=== PATIENT | male | born 1965 | race Two or more races ===

== ENCOUNTER 2019-07-11 10:52 | Emergency (ER) | payer OTHER ==
[~2019-07-11] VITALS: Ht 188 cm; Wt 81.6 kg
[2019-07-11] MEDS ORDERED: SODIUM CHLORIDE 0.9% 1,000 ML IVB ONE (10:55)
[2019-07-11 12:27] LABS: Basophils # (auto) 0.1 uL; Basophils % (auto) 0.5 % (0.0-2.0); Eosinophils # (auto) 0 uL; Eosinophils % (auto) 0.1 % (0.0-7.0)
[2019-07-11 12:29] LABS: Hematocrit 48.4 % (41.0-53.0); Hemoglobin 15.4 g/dL (13.5-17.5); Lymphocytes # (auto) 2.1 uL; Lymphocytes % (auto) 9.9 % (10.0-50.0); Mean Corpuscular Hemoglobin 27.7 pg (28.0-32.0); Mean Corpuscular Hgb Conc. 31.9 g/dL (32.0-36.0); Mean Corpuscular Volume 86.9 fL (80.0-100.0); Monocytes % (auto) 4.8 % (0.0-12.0); Neutrophils # (auto) 17.5 uL; Neutrophils % (auto) 84.7 % (37.0-80.0); Platelet Count (auto) 331 10^3/uL (140-450); Red Blood Cells 5.56 10^6/uL (4.5-5.90); Red Cell Distribution Width 15.7 % (11.8-14.3); White Blood Cell 20.7 10^3/uL (4.4-10.8)
[2019-07-11 12:38] LABS: Albumin 3.7 g/dL (3.4-5.0); BUN/Creatinine Ratio 18.3; Calcium 9.7 mg/dL (8.5-10.1); Magnesium 2.3 mg/dL (1.6-2.6)
[2019-07-11 12:40] LABS: Lactic Acid w/Reflex 4.9 mmol/L (0.4-2.0)
[2019-07-11 12:43] LABS: Bilirubin, Total 0.6 mg/dL (0.2-1.0); Total Protein 8.5 g/dL (6.4-8.2)
[2019-07-11 12:48] LABS: Potassium 2.6 mmol/L (3.5-5.1)
[2019-07-11] MEDS ORDERED: MORPHINE SULFATE 4 MG/ML SYR/VIAL IV ONE ×2 (13:00→22:00)
[2019-07-11] MEDS ORDERED: ONDANSETRON HCL 4 MG/2 ML VIAL IV ONE ×2 (13:00→22:00)
[2019-07-11] MEDS: POTASSIUM CHL 20MEQ/100ML 100 ML IV ONE ×2 (13:25→13:56)
[2019-07-11] MEDS ORDERED: LORazepam 2MG/ML-1ML VIAL IV ONE (15:15)
[2019-07-11] MEDS ORDERED: IOHEXOL 350 MG/ML 100ML IJ ONE (17:32)
[2019-07-11] MEDS ORDERED: SODIUM CHLORIDE 0.9% 1,000 ML IV ONE ×2 (17:33)
[2019-07-11] MEDS ORDERED: PROMETHAZINE HCL 25 MG/ML 1ML ONE (17:34)
[2019-07-11] MEDS ORDERED: PIPERACILLIN-TAZOB 3.375GM 100 ML IV ONE (17:45)
[2019-07-11] MEDS ORDERED: methylPREDNISolone SOD SUCC 125 MG/2 ML VL ONE (17:58)
[2019-07-11] MEDS ORDERED: diphenhdrAMINE HCL 50 MG/1 ML VL ONE (17:58)
[2019-07-11] MEDS ORDERED: PROMETHAZINE HCL 25 MG/ML 1ML IV ONE (18:00)
[2019-07-11] MEDS ORDERED: methylPREDNISolone SOD SUCC 125 MG/2 ML VL IV ONE (18:00)
[2019-07-11] MEDS ORDERED: diphenhdrAMINE HCL 50 MG/1 ML VL IV ONE (18:00)
[2019-07-11] MEDS ORDERED: ASPirin 325 MG TAB PO ONE (20:15)
[2019-07-11] MEDS ORDERED: ENOXAPARIN SOD 100 MG/1 ML SYRINGE SC ONE (20:15)
[2019-07-11 21:50] VITALS: BP 161/89
[2019-07-11] MEDS ORDERED: MORPHINE SULFATE 4 MG/ML SYR/VIAL ONE (21:53)
[2019-07-11] MEDS ORDERED: ONDANSETRON HCL 4 MG/2 ML VIAL ONE (21:53)
== END 2019-07-11 22:06 | disposition short-term general hospital (02) ==
LOC: EDBD 10:52 → ER 10:52
DX: R41.82 Altered mental status, unspecified (principal); R53.1 Weakness; E86.0 Dehydration; E87.6 Hypokalemia; E78.5 Hyperlipidemia, unspecified; I10 Essential (primary) hypertension; F17.210 Nicotine dependence, cigarettes, uncomplicated; Z87.442 Personal history of urinary calculi; Z88.0 Allergy status to penicillin
CPT/HCPCS: 36415; 36600; 70450; 71045; 74176; 75635; 80053; 82010; 82150; 82550; 82805; 82962; 83605; 83690; 83735; 85025; 85652; 87040; 93005; 96361; 96365; 96366; 96367; 96372; 96375; 96376; 99285; J1200; J1650; J2270; J2405; J2543; J2550; J2930; J3480; J7030; Q9967